=== PATIENT | female | born 1970 | race American Indian/Alaskan Native ===

== ENCOUNTER 2017-07-25 13:58 | Emergency (ER) | payer SELFPAY ==
[2017-07-25 14:13] VITALS: BP 126/52
[2017-07-25 14:59] LABS: Basophils % (Auto) 0.6 % (0.0-1.8); Eosinophils # (Auto) 0.1 K/mm3 (0.0-0.4); Eosinophils % (Auto) 1.4 % (0.0-4.3); Hematocrit 40.5 % (30.3-42.9); Hemoglobin 13.5 gm/dl (10.1-14.3); Lymphocytes # (Auto) 2.2 K/mm3 (1.2-5.4); Lymphocytes % (Auto) 29.8 % (13.4-35.0); Mean Corpuscular HGB Conc 33 % (30-34); Mean Corpuscular Hemoglobin 27 pg (28-32); Mean Corpuscular Volume 80 fl (79-97); Monocytes # (Auto) 0.6 K/mm3 (0.0-0.8); Monocytes % (Auto) 8.2 % (0.0-7.3); Platelet Count 302 K/mm3 (140-440); Red Blood Count 5.08 M/mm3 (3.65-5.03); Red Cell Distribution Width 14.8 % (13.2-15.2)
[2017-07-25 15:10] LABS: Alanine Aminotransferase 19 units/L (7-56); Albumin 3.6 g/dL (3.9-5); BUN/Creatinine Ratio 16; Blood Urea Nitrogen 13 mg/dL (7-17); Calcium 8.8 mg/dL (8.4-10.2); Hemolysis Index 3
[2017-07-25 16:03] LABS: Bilirubin,Urine NEG (Negative); Blood,Urine SM (Negative); Color,Urine Yellow (Yellow); Mucus,Urine 2+ /HPF; Protein,Urine <15 mg/dL mg/dL (Negative); Urobilinogen,Urine < 2.0 mg/dL (<2.0); WBC,Urine > 182.0 /HPF (0.0-6.0)
[2017-07-25] MEDS ORDERED: LEVAQUIN PO ONE (18:14)
[2017-07-25] MEDS ORDERED: PYRIDIUM PO ONE (18:14)
--- NOTE | 2017-07-25 18:19 | Emergency Department Report ---
ED General Adult HPI - General Chief complaint: Abdominal Pain Stated complaint: ABD/BACK PAIN/FREQUENT URINATION/ Time Seen by Provider: 07/25/17 18:08 Source: patient Mode of arrival: Ambulatory Limitations: No Limitations - History of Present Illness Initial comments: Patient presents to emergency department for increased urinary frequency and pain with urination. The patient states she's taken AZO was [id number] without much relief. Patient denies abdominal pain stating only had pain when I urinate. Patient has no fever, discharge, vaginal bleeding. -: Gradual Radiation: non-radiation Severity scale (0 -10): 2 Quality: burning Consistency: intermittent Improves with: none Worsens with: other (urinating) Associated Symptoms: denies other symptoms Treatments Prior to Arrival: none - Related Data Home Medications Medication Instructions Recorded Confirmed Last Taken Advil 100 MG tab 12/06/14 12/06/14 Unknown Previous Rx's Medication Instructions Recorded Last Taken Type Clindamycin [Clindamycin CAP] 300 mg PO Q12H #20 cap 12/06/14 Unknown Rx Ibuprofen [Motrin] 800 mg PO Q8HR PRN #21 tablet 12/06/14 Unknown Rx Oxycodone HCl/Acetaminophen 1 each PO Q8H PRN #15 tablet 12/06/14 Unknown Rx [Percocet 7.5/325 mg] Levofloxacin [Levaquin] 750 mg PO QDAY #4 tablet 07/25/17 Unknown Rx Phenazopyridine [Pyridium] 200 mg PO BID #6 tab 07/25/17 Unknown Rx Allergies Allergy/AdvReac Type Severity Reaction Status Date / Time codeine Allergy Unknown Verified 07/25/17 14:10 Sulfa (Sulfonamide Allergy Unknown Verified 07/25/17 14:10 Antibiotics) ED Review of Systems ROS: Stated complaint: ABD/BACK PAIN/FREQUENT URINATION/ Other details as noted in HPI Comment: All other systems reviewed and negative Constitutional: denies: chills, fever Eyes: denies: eye pain, eye discharge, vision change ENT: denies: ear pain, throat pain Respiratory: denies: cough, shortness of breath, wheezing Cardiovascular: denies: chest pain, palpitations Endocrine: no symptoms reported Gastrointestinal: denies: abdominal pain, nausea, diarrhea Genitourinary: denies: urgency, dysuria, discharge Musculoskeletal: denies: back pain, joint swelling, arthralgia Skin: denies: rash, lesions Neurological: denies: headache, weakness, paresthesias Psychiatric: denies: anxiety, depression Hematological/Lymphatic: denies: easy bleeding, easy bruising ED Past Medical Hx - Past Medical History Previous Medical History?: No Additional medical history: heel spur, Vaginal delivery x 3 - Surgical History Additional Surgical History: hyst, hemorrhoidectomy - Social History Smoking Status: Current Every Day Smoker Substance Use Type: Alcohol - Medications Home Medications: Home Medications Medication Instructions Recorded Confirmed Last Taken Type Advil 100 MG tab 12/06/14 12/06/14 Unknown History Clindamycin [Clindamycin CAP] 300 mg PO Q12H #20 cap 12/06/14 Unknown Rx Ibuprofen [Motrin] 800 mg PO Q8HR PRN #21 tablet 12/06/14 Unknown Rx Oxycodone HCl/Acetaminophen 1 each PO Q8H PRN #15 tablet 12/06/14 Unknown Rx [Percocet 7.5/325 mg] Levofloxacin [Levaquin] 750 mg PO QDAY #4 tablet 07/25/17 Unknown Rx Phenazopyridine [Pyridium] 200 mg PO BID #6 tab 07/25/17 Unknown Rx ED Physical Exam - General Limitations: No Limitations General appearance: alert, in no apparent distress - Head Head exam: Present: atraumatic, normocephalic - Eye Eye exam: Present: normal appearance - ENT ENT exam: Present: mucous membranes moist - Neck Neck exam: Present: normal inspection - Respiratory Respiratory exam: Present: normal lung sounds bilaterally. Absent: respiratory distress - Cardiovascular Cardiovascular Exam: Present: regular rate, normal rhythm. Absent: systolic murmur, diastolic murmur, rubs, gallop - GI/Abdominal GI/Abdominal exam: Present: soft, normal bowel sounds. Absent: distended, tenderness - Extremities Exam Extremities exam: Present: normal inspection - Back Exam Back exam: Present: normal inspection - Neurological Exam Neurological exam: Present: alert, oriented X3 - Psychiatric Psychiatric exam: Present: normal affect, normal mood - Skin Skin exam: Present: warm, dry, intact, normal color. Absent: rash ED Course Vital Signs 07/25/17 14:10 Temperature 98.2 F Pulse Rate 79 Respiratory 18 Rate Blood Pressure 126/52 O2 Sat by Pulse 99 Oximetry ED Medical Decision Making - Lab Data Result diagrams: 07/25/17 14:43 07/25/17 14:43 - Medical Decision Making Discussed results with the patient Critical care attestation.: If time is entered above; I have spent that time in minutes in the direct care of this critically ill patient, excluding procedure time. ED Disposition Clinical Impression: UTI (urinary tract infection) Disposition: TO HOME OR SELFCARE Is pt being admited?: No Does the pt Need Aspirin: No Condition: Stable Instructions: Abdominal Pain (ED), Urinary Tract Infection in Women (ED) Additional Instructions: return if worse Prescriptions: Levofloxacin [Levaquin] 750 mg PO QDAY #4 tablet Phenazopyridine [Pyridium] 200 mg PO BID #6 tab Referrals: AXEL FREEDMAN MD [Staff Physician] - 3-5 Days Time of Disposition: 18:19
== END 2017-07-25 18:25 | disposition home or self-care (01) ==
LOC: ED 13:58
DX: N39.0 Urinary tract infection, site not specified (principal); F17.200 Nicotine dependence, unspecified, uncomplicated; Z88.5 Allergy status to narcotic agent; Z88.2 Allergy status to sulfonamides
CPT/HCPCS: 36415; 80053; 81001; 85025; 99283

== ENCOUNTER 2021-10-07 16:04 | Emergency (ER) | payer SELFPAY ==
[2021-10-07 16:11] VITALS: BP 155/80
== END 2021-10-07 19:30 | disposition left against medical advice (07) ==
LOC: ED 16:04
DX: R07.9 Chest pain, unspecified (principal); M25.559 Pain in unspecified hip; Z53.21 Procedure and treatment not carried out due to patient leaving prior to being seen by health care provider

== ENCOUNTER 2021-10-15 06:47 | Emergency (ER) | payer SELFPAY ==
[2021-10-15 07:37] VITALS: BP 156/89
[2021-10-15] MEDS ORDERED: KETOROLAC 60 MG/2 ML INJ IM ONE (09:08)
[2021-10-15] MEDS ORDERED: dexAMETHasone 4 MG/ML VIAL IM ONE (09:08)
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
== END 2021-10-15 10:02 | disposition home or self-care (01) ==
LOC: ED 06:47
DX: M54.50 Low back pain, unspecified (principal); M79.605 Pain in left leg; Z98.890 Other specified postprocedural states; Z88.2 Allergy status to sulfonamides; Z88.5 Allergy status to narcotic agent; Z79.899 Other long term (current) drug therapy
CPT/HCPCS: 96372; 99282; J1100; J1885